=== PATIENT | female | born 1955 | race African-American/Black ===

== ENCOUNTER 2016-11-29 17:01 | Emergency (ER) | payer MEDICARE, OTHER ==
[2016-11-29 17:07] VITALS: BP 161/75
--- NOTE | 2016-11-29 17:14 | ER Document Report ---
ED Medical Screen (RME) - General Stated Complaint: KNEE PAIN Mode of Arrival: Ambulatory Information source: Patient Notes: Patient complains of left knee occasionally locking up. Patient denies any new injury. hx: Diabetes, hypertension, glaucoma I have greeted and performed a rapid initial assessment of this patient. A comprehensive ED assessment and evaluation of the patient, analysis of test results and completion of the medical decision making process will be conducted by additional ED providers. TRAVEL OUTSIDE OF THE [place] IN LAST 30 DAYS: No - Related Data Allergies/Adverse Reactions: No Known Allergies Allergy (Verified 09/16/16 10:53) Past Medical History - Past Medical History Cardiac Medical History: Reports: Hx Hypercholesterolemia, Hx Hypertension Pulmonary Medical History: Reports: Hx Asthma Endocrine Medical History: Reports: Hx Diabetes Mellitus Type 1, Hx Diabetes Mellitus Type 2 Past Surgical History: Reports: Hx Hysterectomy, Hx Orthopedic Surgery - L knee replacement - Immunizations Hx Diphtheria, Pertussis, Tetanus Vaccination: Yes Physical Exam - Vital signs Vitals: Temp Pulse Resp BP Pulse Ox 98.1 F 68 20 161/75 H 98 11/29/16 17:06 11/29/16 17:06 11/29/16 17:06 11/29/16 17:06 11/29/16 17:06 - Extremities General lower extremity: Tender - Left knee pain Course - Vital Signs Vital signs: Temp Pulse Resp BP Pulse Ox 98.1 F 68 20 161/75 H 98 11/29/16 17:06 11/29/16 17:06 11/29/16 17:06 11/29/16 17:06 11/29/16 17:06
--- NOTE | 2016-11-29 18:52 | ER Document Report ---
HPI - HPI Patient complains to provider of: left knee pain Onset: Other - 3 days Onset/Duration: Waxing and waning Quality of pain: Achy Pain Level: 5 Context: Patient complains of left knee locking up occasionally. Patient states that pain worsens when she's standing. Patient denies any new injury. Associated Symptoms: Other - Left knee. denies: Fever Exacerbated by: Standing, Movement, Walking Relieved by: Denies Similar symptoms previously: No Recently seen / treated by doctor: No - ROS ROS below otherwise negative: Yes Systems Reviewed and Negative: Yes All other systems reviewed and negative - CONSTITUTIONAL Constitutional: DENIES: Fever, Chills - EENT EENT: DENIES: Sore Throat, Ear Pain, Nasal Drainage-Clear, Nasal Drainage- Purulent, Congestion, Eye problems - NEURO Neurology: DENIES: Headache, Weakness, Dizzinesss / Vertigo - CARDIOVASCULAR Cardiovascular: DENIES: Chest pain - RESPIRATORY Respiratory: DENIES: Trouble Breathing, Coughing - GASTROINTESTINAL Gastrointestinal: DENIES: Abdominal Pain, Nausea, Patient vomiting, Diarrhea, Constipation, Black / Bloody Stools - URINARY Urinary: DENIES: Dysuria, Urgency, Frequency - REPRODUCTIVE Reproductive: DENIES: :, Postmenopausal, Abnormal bleeding / discharge - MUSCULOSKELETAL Musculoskeletal: REPORTS: Extremity pain - left knee. DENIES: Back Pain, Neck Pain, Swelling - DERM Skin Color: Normal Skin Problems: None - NURSING COMMENTS Comment: pt states she had tkr to the left knee in . states now the knee had got to where it will lock up on her. states she has appt next month to the orthopedic. states she recently had back surgery and was told that would also help her knee. Past Medical History - General Information source: Patient - Social History Smoking Status: Unknown if Ever Smoked Chew tobacco use (# tins/day): No Frequency of alcohol use: None Drug Abuse: None Occupation: none Lives with: Spouse/Significant other Family History: Reviewed & Not Pertinent Patient has suicidal ideation: No Patient has homicidal ideation: No - Past Medical History Cardiac Medical History: Reports: Hx Hypercholesterolemia, Hx Hypertension Pulmonary Medical History: Reports: Hx Asthma Endocrine Medical History: Reports: Hx Diabetes Mellitus Type 1, Hx Diabetes Mellitus Type 2 Renal/ Medical History: Denies: Hx Peritoneal Dialysis Past Surgical History: Reports: Hx Hysterectomy, Hx Orthopedic Surgery - L knee replacement - Immunizations Hx Diphtheria, Pertussis, Tetanus Vaccination: Yes Hx Pneumococcal Vaccination: 08/08/12 Vertical Provider Document - CONSTITUTIONAL Agree With Documented VS: Yes Exam Limitations: No Limitations General Appearance: WD/WN, No Apparent Distress - INFECTION CONTROL TRAVEL OUTSIDE OF THE [place] IN LAST 30 DAYS: No - HEENT HEENT: Atraumatic, Normocephalic - NECK Neck: Normal Inspection - RESPIRATORY Respiratory: Breath Sounds Normal, No Respiratory Distress O2 Sat by Pulse Oximetry: 98 - CARDIOVASCULAR Cardiovascular: Regular Rate, Regular Rhythm Pulses: Normal: Posterior tibial - MUSCULOSKELETAL/EXTREMETIES Musculoskeletal/Extremeties: MAEW, Tender - Mild tenderness to left knee joint medial compartment, no laxity with varus or valgus maneuvers, no effusion, scar overlying left knee from previous knee replacement surgery - NEURO Level of Consciousness: Awake, Alert, Appropriate Motor/Sensory: No Motor Deficit, No Sensory Deficit - DERM Integumentary: Warm, Dry, No Rash Course - Re-evaluation Re-evalutation: 11/29/16 18:53 Patient states that she has crutches at home. - Vital Signs Vital signs: Temp Pulse Resp BP Pulse Ox 98.1 F 68 20 161/75 H 98 11/29/16 17:06 11/29/16 17:06 11/29/16 17:06 11/29/16 17:06 11/29/16 17:06 - Diagnostic Test Radiology reviewed: Reports reviewed Discharge - Discharge Clinical Impression: hx arthritis Knee pain, left Qualifiers: Chronicity: unspecified Qualified Code(s): M25.562 - Pain in left knee Condition: Stable Disposition: HOME, SELF-CARE Instructions: Oral Narcotic Medication ([facility]), Arthritis ([facility]) Additional Instructions: Return immediately for any new or worsening symptoms Followup with your primary care provider, call tomorrow to make a followup appointment Follow-up with your orthopedic surgeon ([facility]) for recheck Prescriptions: Oxycodone HCl/Acetaminophen [Percocet 5-325 mg Tablet] 1 tab PO ASDIR PRN #15 tablet PRN Reason: Forms: Elevated Blood Pressure
== END 2016-11-29 18:56 | disposition home or self-care (01) ==
LOC: ER 17:01
DX: M25.562 Pain in left knee (principal); E78.00 Pure hypercholesterolemia, unspecified; I10 Essential (primary) hypertension; E11.9 Type 2 diabetes mellitus without complications; Z90.710 Acquired absence of both cervix and uterus; Z96.652 Presence of left artificial knee joint
CPT/HCPCS: 99283

== ENCOUNTER → 2016-12-25 | Outpatient (CLI) | payer MEDICARE ==
[2016-12-25 10:21] LABS: BLOOD UREA NITROGEN 13 mg/dL (7-20)
== END ==
LOC: OD 09:05
PROVIDERS: ATTEND Orthopaedic Surgery
DX: M54.32 Sciatica, left side (principal)
CPT/HCPCS: 36415; 82565; 84520

== ENCOUNTER → 2017-01-18 | Outpatient (CLI) | payer MEDICARE, OTHER | LOC: OD 11:34 | PROVIDERS: ATTEND Physician Assistant | DX: M25.562 Pain in left knee (principal) | CPT/HCPCS: 36415; 85652; 86140 ==

== ENCOUNTER 2018-12-21 19:06 | Emergency (ER) | payer MEDICARE ==
[2018-12-21 19:12] VITALS: BP 178/78
--- NOTE | 2018-12-21 19:18 | ER Document Report ---
HPI - HPI Time Seen by Provider: 12/21/18 19:16 Pain Level: 4 Notes: Patient is a 63-year-old female with no significant past medical history aside from diabetes and hypertension who presents to the emergency department complaining of left medial ankle pain status post injury prior to arrival. Patient states that she was walking through a store when she stepped awkwardly on a pipe. Patient states that she has had pain since then without any obvious swelling or deformity. She has not noticed any bruising. Patient states that she is able to ambulate and weight-bear, but does have a limp. No other concerns or complaints. Denies drug allergies. Denies any headache, fever, head injury, neck pain, URI, sore throat, chest pain, palpitations, syncope, cough, shortness of breath, wheeze, dyspnea, abdominal pain, nausea/vomiting/diarrhea, urinary retention, dysuria, hematuria, loss of control of bowel or bladder, numbness/tingling, muscle paralysis, or rash. - ROS Systems Reviewed and Negative: Yes All other systems reviewed and negative - REPRODUCTIVE Reproductive: DENIES: : Past Medical History - Social History Smoking Status: Unknown if Ever Smoked Family History: Reviewed & Not Pertinent - Past Medical History Cardiac Medical History: Reports: Hx Hypercholesterolemia, Hx Hypertension Pulmonary Medical History: Reports: Hx Asthma Endocrine Medical History: Reports: Hx Diabetes Mellitus Type 1, Hx Diabetes Mellitus Type 2 Renal/ Medical History: Denies: Hx Peritoneal Dialysis Past Surgical History: Reports: Hx Hysterectomy, Hx Orthopedic Surgery - L knee replacement - Immunizations Hx Diphtheria, Pertussis, Tetanus Vaccination: Yes Hx Pneumococcal Vaccination: 08/08/12 Vertical Provider Document - CONSTITUTIONAL Agree With Documented VS: Yes Notes: PHYSICAL EXAMINATION: GENERAL: Well-appearing, well-nourished and in no acute distress. LUNGS: Breath sounds clear to auscultation bilaterally and equal. No wheezes rales or rhonchi. HEART: Regular rate and rhythm without murmurs, rubs, gallops. Musculoskeletal: Lt foot/ankle: FROM to passive/active. Strength 5+/5. N/V intact distal. + tenderness to the medial malleolus. No bony tenderness of the foot. Achilles intact. Extremities: No cyanosis, clubbing, or edema b/l. Peripheral pulses 2+. Capillary refill less than 3 seconds. NEUROLOGICAL: Normal speech, limping gait. Normal sensory, motor exams PSYCH: Normal mood, normal affect. SKIN: Warm, Dry, normal turgor, no rashes or lesions noted. - INFECTION CONTROL TRAVEL OUTSIDE OF THE [place] IN LAST 30 DAYS: No Course - Re-evaluation Re-evalutation: 12/21/18 20:20 Patient is an afebrile, well-hydrated, 63-year-old female who presents to the ED with left ankle pain which I suspect to be a sprain versus strain. Vitals are acceptable without any significant tachycardia, tachypnea, or hypoxia. PE is otherwise unremarkable for any neurovascular compromise, obvious tendon/ligament rupture, obvious fracture/dislocation, septic joint. X-ray was unremarkable for any acute pathology. Ankle stirrup provided today. Patient declined any Tylenol or ice. Patient is nontoxic-appearing. Patient is able to ambulate and weight-bear although she is limping. No other labs or imaging warranted at this time based on H&P. Conservative measures otherwise for symptoms. Recheck with your PCM in 3-5 days. Consider consult orthopedics. Return to the ED with any worsening/concerning symptoms otherwise as reviewed in discharge. Patient is in agreement. - Vital Signs Vital signs: Temp Pulse Resp BP Pulse Ox 98.9 F 72 16 178/78 H 97 12/21/18 19:10 12/21/18 19:10 12/21/18 19:10 12/21/18 19:10 12/21/18 19:10 Discharge - Discharge Clinical Impression: Left ankle pain Qualifiers: Chronicity: acute Qualified Code(s): M25.572 - Pain in left ankle and joints of left foot Condition: Stable Disposition: HOME, SELF-CARE Additional Instructions: Rest, Ice, Compression, Elevation Use splint as directed Tylenol/ibuprofen as needed Light stretches daily Strength exercises as able Moist heat and massage may help F/u with your PCP in 3-5 days for a recheck Consider consult(s) with Orthopedics/physical therapy for ongoing/worsening symptoms Return to the ED with any worsening symptoms and/or development of fever, headache, chest pain, palpitations, syncope, shortness of breath, trouble breathing, abdominal pain, n/v/d, muscle weakness/paralysis, numbness/tingling, swelling, redness, or other worsening symptoms that are concerning to you. Forms: Elevated Blood Pressure Referrals: LEON SINGH PA [NO LOCAL MD] - Follow up as needed [facility] [Provider Group] - Follow up as needed
--- NOTE | 2018-12-21 20:19 | RADIOLOGY REPORT (SQ) ---
EXAM DESCRIPTION: XR ANKLE 3 OR MORE VIEWS COMPLETED DATE/TME: 12/21/2018 19:10 CLINICAL HISTORY: 63 years, Female, left ankle pain s/p injury COMPARISON: None. NUMBER OF VIEWS: Three TECHNIQUE: One frontal and oblique and lateral views of the left ankle joint. LIMITATIONS: None. FINDINGS: Ankle alignment is maintained. No fracture. Talar dome is intact. Calcaneus bone is without acute finding. Small plantar calcaneal spur. Small osteophyte at the postero-superior calcaneus in the region of the Achilles tendon insertion. Lower leg vascular calcifications are noted. IMPRESSION: No acute osseous finding of the left ankle joint. copyright 2010 [employer]- All Rights Reserved
== END 2018-12-21 20:32 | disposition home or self-care (01) ==
LOC: ER 19:06
DX: M25.572 Pain in left ankle and joints of left foot (principal); X50.0XXA Overexertion from strenuous movement or load, initial encounter; Y93.89 Activity, other specified; Y92.512 Supermarket, store or market as the place of occurrence of the external cause; E11.9 Type 2 diabetes mellitus without complications; I10 Essential (primary) hypertension; J45.909 Unspecified asthma, uncomplicated
CPT/HCPCS: 99283; 73610; L4350

== ENCOUNTER 2019-08-07 19:31 | Emergency (ER) | payer MEDICARE ==
[2019-08-07] MEDS ORDERED: CLONIDINE 0.3 MG/24 HR PATCH.TDWK TD ONE (20:55)
[2019-08-07 21:09] LABS: ABSOLUTE BASOPHILS # (AUTO) 0.1 10^3/uL (0.0-0.2); ABSOLUTE EOSINOPHILS # (AUTO) 0.4 10^3/uL (0.0-0.6); ABSOLUTE LYMPHOCYTES (AUTO) 0.9 10^3/uL (0.5-4.7); ABSOLUTE MONOCYTES (AUTO) 0.5 10^3/uL (0.1-1.4); ABSOLUTE NEUT (AUTO) 2.4 10^3/uL (1.7-8.2); BASOPHILS % (AUTO) 1.2 % (0-2); EOSINOPHILS % (AUTO) 8.6 % (0-6); HEMATOCRIT 37.2 % (36.0-47.0); HEMOGLOBIN 11.7 g/dL (12.0-15.5); LYMPHOCYTES % (AUTO) 21.8 % (13-45); MEAN CORPUSCULAR HEMOGLOBIN 23.9 pg (27.0-33.4); MEAN CORPUSCULAR HGB CONC 31.6 g/dL (32.0-36.0); MEAN CORPUSCULAR VOLUME 76 fl (80-97); MONOCYTES % (AUTO) 11.1 % (3-13); PLATELET COUNT 189 10^3/uL (150-450); RED BLOOD COUNT 4.92 10^6/uL (3.72-5.28); RED CELL DISTRIBUTION WIDTH 15.7 % (11.5-14.0); SEGMENTED NEUTROPHILS % (AUTO) 57.3 % (42-78); TOTAL CELLS COUNTED % (AUTO) 100 %; WHITE BLOOD COUNT 4.2 10^3/uL (4.0-10.5)
[2019-08-07 21:21] LABS: ALBUMIN 4.1 g/dL (3.5-5.0); ALKALINE PHOSPHATASE 72 U/L (38-126); ANION GAP 11 (5-19); ASPARTATE AMINO TRANSFERASE 19 U/L (14-36); BILIRUBIN,DIRECT 0.1 mg/dL (0.0-0.4); BILIRUBIN,TOTAL 0.3 mg/dL (0.2-1.3); BLOOD UREA NITROGEN 19 mg/dL (7-20); CALCIUM 10.2 mg/dL (8.4-10.2); CARBON DIOXIDE 28 mmol/L (22-30); CHLORIDE 103 mmol/L (98-107); GLUCOSE 117 mg/dL (75-110); POTASSIUM 3.6 mmol/L (3.6-5.0); TOTAL PROTEIN 6.6 g/dL (6.3-8.2)
[2019-08-07] MEDS ORDERED: CLONIDINE 0.3 MG/24 HR PATCH.TDWK ONE (21:28)
--- NOTE | 2019-08-07 21:44 | ER Document Report ---
ED Blood Pressure Problem - General Chief Complaint: High Blood Pressure Stated Complaint: BLOOD PRESSURE ISSUE Time Seen by Provider: 08/07/19 20:21 Primary Care Provider: EDWARD SETH PA-C [Primary Care Provider] - Follow up as needed Notes: Patient is a 64-year-old female presents to the emergency department for an elevation in her blood pressure. Patient states she typically follows up at [facility]. States in the last month her primary care provider has been "dealing with my high blood pressure." Patient voices her blood pressure is typically 150/90. States she has been taking metoprolol, losartan, hydralazine as prescribed. States she typically uses clonidine 0.3 mg transdermal patch onc e a week. States she did take it off this morning and forgot to put a repeat patch on. States when she got home she took her home blood pressure and it was 224/107. States she presents to her pharmacy to see if the blood pressure was the same at the pharmacy as it was at home. States the pharmacist told her she should present to the emergency room. Patient is denying any chest pain, shortness of breath, dizziness, headache, weakness, shortness of breath. Patient voices her reluctance to coming to the emergency department because "I feel fine." TRAVEL OUTSIDE OF THE [place] IN LAST 30 DAYS: No - Related Data Allergies/Adverse Reactions: No Known Allergies Allergy (Verified 12/21/18 19:06) Past Medical History - General Information source: Patient - Social History Smoking Status: Never Smoker Frequency of alcohol use: None Drug Abuse: None Family History: Reviewed & Not Pertinent Patient has suicidal ideation: No Patient has homicidal ideation: No - Past Medical History Cardiac Medical History: Reports: Hx Hypercholesterolemia, Hx Hypertension Pulmonary Medical History: Reports: Hx Asthma Endocrine Medical History: Reports: Hx Diabetes Mellitus Type 1, Hx Diabetes Mellitus Type 2 Renal/ Medical History: Denies: Hx Peritoneal Dialysis Past Surgical History: Reports: Hx Hysterectomy, Hx Orthopedic Surgery - L knee replacement - Immunizations Hx Diphtheria, Pertussis, Tetanus Vaccination: Yes Hx Pneumococcal Vaccination: 08/08/12 Review of Systems - Review of Systems Constitutional: denies: Fever EENT: No symptoms reported Cardiovascular: No symptoms reported Respiratory: No symptoms reported Gastrointestinal: No symptoms reported Genitourinary: No symptoms reported Female Genitourinary: No symptoms reported Musculoskeletal: No symptoms reported Skin: No symptoms reported Hematologic/Lymphatic: No symptoms reported Neurological/Psychological: No symptoms reported Physical Exam - Vital signs Vitals: Temp Pulse Resp BP Pulse Ox 98.2 F 64 14 231/83 H 96 08/07/19 19:40 08/07/19 19:40 08/07/19 19:40 08/07/19 19:40 08/07/19 19:40 - Notes Notes: GENERAL: Alert, interacts well. No acute distress. HEAD: Normocephalic, atraumatic. EYES: Pupils equal, round, and reactive to light. Extraocular movements intact. ENT: Oral mucosa moist, tongue midline. NECK: Full range of motion. Supple. Trachea midline. LUNGS: Clear to auscultation bilaterally, no wheezes, rales, or rhonchi. No respiratory distress. HEART: Regular rate and rhythm. No murmur ABDOMEN: Soft, non-tender. Non-distended. Bowel sounds present in all 4 quadrants. EXTREMITIES: Moves all 4 extremities spontaneously. No edema, normal radial and dorsalis pedis pulses bilaterally. No cyanosis. 5 out of 5 strength noted all 4 extremities. BACK: no cervical, thoracic, lumbar midline tenderness. No saddle anesthesia, normal distal neurovascular exam. NEUROLOGICAL: Alert and oriented x3. Normal speech. cranial nerves II through XII grossly intact PSYCH: Normal affect, normal mood. SKIN: Warm, dry, normal turgor. No rashes or lesions noted. Course - Re-evaluation Re-evalutation: 08/07/19 21:41 Laboratory 08/07/19 08/07/19 20:53 20:53 WBC 4.2 RBC 4.92 Hgb 11.7 L Hct 37.2 MCV 76 L MCH 23.9 L MCHC 31.6 L RDW 15.7 H Plt Count 189 Lymph % (Auto) 21.8 [place] % (Auto) 11.1 Eos % (Auto) 8.6 H Baso % (Auto) 1.2 Absolute Neuts (auto) 2.4 Absolute Lymphs (auto) 0.9 Absolute Monos (auto) 0.5 Absolute Eos (auto) 0.4 Absolute Basos (auto) 0.1 Seg Neutrophils % 57.3 Sodium 141.9 Potassium 3.6 Chloride 103 Carbon Dioxide 28 Anion Gap 11 BUN 19 Creatinine 0.96 Est GFR ( Amer) > 60 Est GFR (MDRD) Non-Af 58 L Glucose 117 H Calcium 10.2 Total Bilirubin 0.3 Direct Bilirubin 0.1 Neonat Total Bilirubin Not Reportable Neonat Direct Bilirubin Not Reportable Neonat Indirect Bili Not Reportable AST 19 ALT 16 Alkaline Phosphatase 72 Total Protein 6.6 Albumin 4.1 I have discussed this case with my attending Dr. Varghese who is suggesting giving the pt. her dose of Clonidine and having her f/u with her PCP. Patient voices she does have an appointment with her primary care provider on the of this month. I have explained her the importance of following up tomorrow. Discussed making sure she takes her medications as prescribed. Patient continues with asymptomatic hypertension. At this time will discharge with return precautions and follow-up recommendations. Verbal discharge instructions given a the bedside and opportunity for questions given. Medication warnings reviewed. Patient is in agreement with this plan and has verbalized understanding of return precautions and the need for primary care follow-up in the next 12-24 hours. This medical record was dictated with voice recognizing software. There may be grammatical, syntax errors that are unintended. - Vital Signs Vital signs: Temp Pulse Resp BP Pulse Ox 98.2 F 64 22 H 205/105 H 98 08/07/19 19:40 08/07/19 19:40 08/07/19 20:50 08/07/19 20:58 08/07/19 20:50 - Laboratory Result Diagrams: 08/07/19 20:53 08/07/19 20:53 Laboratory results interpreted by me: 08/07/19 08/07/19 20:53 20:53 Hgb 11.7 L MCV 76 L MCH 23.9 L MCHC 31.6 L RDW 15.7 H Eos % (Auto) 8.6 H Est GFR (MDRD) Non-Af 58 L Glucose 117 H Discharge - Discharge Clinical Impression: Hypertension Qualifiers: Hypertension type: unspecified Qualified Code(s): I10 - Essential (primary) hypertension Condition: Stable Disposition: HOME, SELF-CARE Instructions: High Blood Pressure ([facility]), Clonidine ([facility]) ([facility]) Additional Instructions: As we discussed you have been seen and treated in the emergency department for elevation of your blood pressure. Please make sure you are taking your medications as prescribed. Please call your primary care provider tomorrow to make an appointment. Please return to the emergency room for any concerns. Referrals: EDWARD SETH PA-C [Primary Care Provider] - Follow up as needed
[2019-08-07 22:16] VITALS: BP 200/82
--- NOTE | 2019-08-08 17:59 | EKG REPORT ---
SEVERITY:- BORDERLINE ECG - SINUS RHYTHM BORDERLINE T WAVE ABNORMALITIES BORDERLINE PROLONGED QT INTERVAL : Confirmed by: Tanya Calderon 08-Aug-2019 17:59:33
== END 2019-08-07 22:15 | disposition home or self-care (01) ==
LOC: ER 19:31
DX: I10 Essential (primary) hypertension (principal); E78.00 Pure hypercholesterolemia, unspecified; E11.9 Type 2 diabetes mellitus without complications; Z90.710 Acquired absence of both cervix and uterus; Z96.652 Presence of left artificial knee joint
CPT/HCPCS: 93005; 36415; 85025; 80053; 93010; J3490; 99283

== ENCOUNTER 2019-09-06 14:00 | Emergency (ER) | payer MEDICARE ==
--- NOTE | 2019-09-06 14:32 | ER Document Report ---
ED Medical Screen (RME) - General Chief Complaint: Allergic Reaction Stated Complaint: POSSIBLE ALLERGIC REACTION Time Seen by Provider: 09/06/19 14:18 Primary Care Provider: EDWARD SETH PA-C [Primary Care Provider] - Follow up as needed Mode of Arrival: Ambulatory Information source: Patient Notes: This 64-year-old female presents emergency department with complaints of slurred speech confusion that started this morning after she took Xanax. Reports her coworker said that she was slurring her speech. She started taking Xanax yesterday second dose was this morning at 0800. Reports she was placed on Xanax for her high blood pressure and stress. Reports feeling lightheaded when she walks, with activity. Some slurred speech noted at times. No obvious neuro deficits although patient tends to talk out of the right side of her mouth not sure this is normal for patient. No tongue deviation. Nasolabial fold on left slightly flattened. Good egg crater. I have greeted and performed a rapid initial assessment of this patient. A comprehensive ED assessment and evaluation of the patient, analysis of test results and completion of the medical decision making process will be conducted by additional ED providers. Dictation of this chart was performed using voice recognition software; therefore, there may be some unintended grammatical errors. TRAVEL OUTSIDE OF THE [place] IN LAST 30 DAYS: No - Related Data Allergies/Adverse Reactions: No Known Allergies Allergy (Verified 09/06/19 14:19) Past Medical History - Past Medical History Cardiac Medical History: Reports: Hx Hypercholesterolemia, Hx Hypertension Pulmonary Medical History: Reports: Hx Asthma Endocrine Medical History: Reports: Hx Diabetes Mellitus Type 1, Hx Diabetes Mellitus Type 2 Renal/ Medical History: Denies: Hx Peritoneal Dialysis Past Surgical History: Reports: Hx Hysterectomy, Hx Orthopedic Surgery - L knee replacement - Immunizations Hx Diphtheria, Pertussis, Tetanus Vaccination: Yes Physical Exam - Vital signs Vitals: Temp Pulse Resp BP Pulse Ox 97.6 F 62 20 153/68 H 100 09/06/19 14:06 09/06/19 14:06 09/06/19 14:06 09/06/19 14:06 09/06/19 14:06 Course - Vital Signs Vital signs: Temp Pulse Resp BP Pulse Ox 97.6 F 62 20 153/68 H 100 09/06/19 14:06 09/06/19 14:06 09/06/19 14:06 09/06/19 14:06 09/06/19 14:06 Doctor's Discharge - Discharge Referrals: EDWARD SETH PA-C [Primary Care Provider] - Follow up as needed
[2019-09-06 14:53] LABS: ABSOLUTE BASOPHILS # (AUTO) 0.1 10^3/uL (0.0-0.2); ABSOLUTE EOSINOPHILS # (AUTO) 0.3 10^3/uL (0.0-0.6); ABSOLUTE LYMPHOCYTES (AUTO) 0.9 10^3/uL (0.5-4.7); ABSOLUTE MONOCYTES (AUTO) 0.4 10^3/uL (0.1-1.4); ABSOLUTE NEUT (AUTO) 2.4 10^3/uL (1.7-8.2); BASOPHILS % (AUTO) 1.3 % (0-2); EOSINOPHILS % (AUTO) 7.5 % (0-6); HEMATOCRIT 38.2 % (36.0-47.0); HEMOGLOBIN 12.2 g/dL (12.0-15.5); MEAN CORPUSCULAR HEMOGLOBIN 24.2 pg (27.0-33.4); MEAN CORPUSCULAR HGB CONC 32.1 g/dL (32.0-36.0); MEAN CORPUSCULAR VOLUME 76 fl (80-97); MONOCYTES % (AUTO) 10.2 % (3-13); PLATELET COUNT 207 10^3/uL (150-450); RED BLOOD COUNT 5.06 10^6/uL (3.72-5.28); RED CELL DISTRIBUTION WIDTH 15.5 % (11.5-14.0); TOTAL CELLS COUNTED % (AUTO) 100 %
[2019-09-06 14:57] LABS: INTERNATIONAL RATION (INR) 0.87
[2019-09-06 14:58] LABS: PARTIAL THROMBOPLASTIN TIME 28.1 SEC (23.5-35.8)
[2019-09-06 14:59] LABS: PROTHROMBIN TIME 11.8 SEC (11.4-15.4)
--- NOTE | 2019-09-06 15:00 | RADIOLOGY REPORT (SQ) ---
EXAM DESCRIPTION: CT HEAD WITHOUT COMPLETED DATE/TIME: 09/06/2019 2:48 pm REASON FOR STUDY: slurred speech, confusion COMPARISON: None. TECHNIQUE: Axial images acquired through the brain without intravenous contrast. Images reviewed wi th bone, brain and subdural windows. Additional sagittal and coronal reconstructions were generated. Images stored on PACS. All CT scanners at this facility use dose modulation, iterative reconstruction, and/or weight based d osing when appropriate to reduce radiation dose to as low as reasonably achievable (ALARA). [facility]: Dose Right [facility]: CareDose [facility]: Dose Right [facility]: Teradose 4D [facility]: [employer] RADIATION DOSE: CT Rad equipment meets quality standard of care and radiation dose reduction techniq ues were employed. CTDIvol: 53.2 mGy. DLP: 1044 mGy-cm. mGy. LIMITATIONS: None. FINDINGS: VENTRICLES: Prominent. CEREBRUM: No masses. No hemorrhage. No midline shift. Areas of low density in the white matter mos t likely due to chronic micro-vascular ischemic change. No evidence for acute infarction. CEREBELLUM: No masses. No hemorrhage. No alteration of density. No evidence for acute infarction. EXTRAAXIAL SPACES: Mild age-related involutional change. No fluid collections. No masses. ORBITS AND GLOBE: No intra- or extraconal masses. Normal contour of globe without masses. CALVARIUM: No fracture. PARANASAL SINUSES: No fluid or mucosal thickening. SOFT TISSUES: No mass or hematoma. OTHER: No other significant finding. IMPRESSION: MILD CHRONIC CHANGES OF ATROPHY AND MICROVASCULAR ISCHEMIA. NO ACUTE PROCESS. EVIDENCE OF ACUTE STROKE: NO. TECHNICAL DOCUMENTATION: JOB ID: [id number] Quality ID # [id number]: Final reports with documentation of one or more dose reduction techniques (e.g., Au tomated exposure control, adjustment of the mA and/or kV according to patient size, use of iterative reconstruction technique) 2010 [employer]- All Rights Reserved Reading location - IP/workstation name: [email or web address]
--- NOTE | 2019-09-06 15:02 | RADIOLOGY REPORT (SQ) ---
EXAM DESCRIPTION: CHEST SINGLE VIEW COMPLETED DATE/TIME: 09/06/2019 2:47 pm REASON FOR STUDY: slurred speech, confusion COMPARISON: 08/19/2012 EXAM PARAMETERS: NUMBER OF VIEWS: One view. TECHNIQUE: Single frontal radiographic view of the chest acquired. RADIATION DOSE: NA LIMITATIONS: None. FINDINGS: LUNGS AND PLEURA: No opacities, masses or pneumothorax. No pleural effusion. MEDIASTINUM AND HILAR STRUCTURES: No masses. Contour normal. HEART AND VASCULAR STRUCTURES: Heart normal in size. Normal vasculature. BONES: No acute findings. HARDWARE: None in the chest. OTHER: No other significant finding. IMPRESSION: NO ACUTE RADIOGRAPHIC FINDING IN THE CHEST. TECHNICAL DOCUMENTATION: JOB ID: [id number] [employer]- All Rights Reserved Reading location - IP/workstation name: [email or web address]
[2019-09-06 15:15] LABS: ALBUMIN 4.5 g/dL (3.5-5.0); ALKALINE PHOSPHATASE 78 U/L (38-126); ANION GAP 13 (5-19); ASPARTATE AMINO TRANSFERASE 18 U/L (14-36); BILIRUBIN,DIRECT 0.1 mg/dL (0.0-0.4); BILIRUBIN,TOTAL 0.5 mg/dL (0.2-1.3); BLOOD UREA NITROGEN 23 mg/dL (7-20); CALCIUM 10.3 mg/dL (8.4-10.2); CARBON DIOXIDE 28 mmol/L (22-30); CHLORIDE 101 mmol/L (98-107); GLUCOSE 179 mg/dL (75-110); POTASSIUM 3.6 mmol/L (3.6-5.0); TOTAL PROTEIN 7.3 g/dL (6.3-8.2)
[2019-09-06 18:05] VITALS: BP 187/97
--- NOTE | 2019-09-06 18:10 | ER Document Report ---
ED Dizziness/Weakness - General Chief Complaint: Dizziness Stated Complaint: POSSIBLE ALLERGIC REACTION Time Seen by Provider: 09/06/19 14:18 Primary Care Provider: EDWARD SETH PA-C [Primary Care Provider] - Follow up as needed Mode of Arrival: Ambulatory Notes: This 64-year-old female presents emergency department with complaints of slurred speech confusion that started this morning after she took Xanax. Reports her coworker said that she was slurring her speech. She started taking Xanax yesterday second dose was this morning at 0800. Reports she was placed on Xanax for her high blood pressure and stress. Reports feeling lightheaded when she walks, with activity. Some slurred speech noted at times. No obvious neuro deficits although patient tends to talk out of the right side of her mouth not sure this is normal for patient. No tongue deviation. Nasolabial fold on left slightly flattened. 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 TRAVEL OUTSIDE OF THE [place] IN LAST 30 DAYS: No - Related Data Allergies/Adverse Reactions: No Known Allergies Allergy (Verified 09/06/19 14:19) Home Medications: [facility] Past Medical History - General Information source: Patient - Social History Smoking Status: Never Smoker Family History: Reviewed & Not Pertinent Patient has suicidal ideation: No Patient has homicidal ideation: No - Past Medical History Cardiac Medical History: Reports: Hx Hypercholesterolemia, Hx Hypertension Pulmonary Medical History: Reports: Hx Asthma Endocrine Medical History: Reports: Hx Diabetes Mellitus Type 1, Hx Diabetes Mellitus Type 2 Renal/ Medical History: Denies: Hx Peritoneal Dialysis Past Surgical History: Reports: Hx Hysterectomy, Hx Orthopedic Surgery - L knee replacement - Immunizations Hx Diphtheria, Pertussis, Tetanus Vaccination: Yes Hx Pneumococcal Vaccination: 08/08/12 Physical Exam - Vital signs Vitals: Temp Pulse Resp BP Pulse Ox 97.6 F 62 20 153/68 H 100 09/06/19 14:06 09/06/19 14:06 09/06/19 14:06 09/06/19 14:06 09/06/19 14:06 Course - Vital Signs Vital signs: Temp Pulse Resp BP Pulse Ox 97.6 F 62 17 187/97 H 96 09/06/19 14:06 09/06/19 14:06 09/06/19 18:01 09/06/19 18:01 09/06/19 18:01 - Laboratory Result Diagrams: 09/06/19 14:36 09/06/19 14:36 Laboratory results interpreted by me: 09/06/19 09/06/19 14:36 14:36 MCV 76 L MCH 24.2 L RDW 15.5 H Eos % (Auto) 7.5 H BUN 23 H Est GFR (MDRD) Non-Af 54 L Glucose 179 H Calcium 10.3 H Discharge - Discharge Clinical Impression: Side effect of medication, Dizziness Condition: Stable Disposition: HOME, SELF-CARE Additional Instructions: Please stop taking the alprazolam that was prescribed to you. I feel this is the most likely culprit of your dizziness. Please continue to take all regularly scheduled medications. Please call and make an appointment with your primary care provider to discuss your elevated blood pressure, and adjustment needs to be to your blood pressure medications. Please return to the emergency department with any new or worsening symptoms we are happy to reevaluate you at any time. Referrals: EDWARD SETH PA-C [Primary Care Provider] - Follow up as needed
--- NOTE | 2019-09-06 23:29 | EKG REPORT ---
SEVERITY:- ABNORMAL ECG - SINUS RHYTHM FIRST DEGREE AV BLOCK BORDERLINE T WAVE ABNORMALITIES : Confirmed by: Shaunna Monroe MD 06-Sep-2019 23:29:21
== END 2019-09-06 18:25 | disposition home or self-care (01) ==
LOC: ER 14:00
DX: T42.4X5A Adverse effect of benzodiazepines, initial encounter (principal); Y92.9 Unspecified place or not applicable; R42 Dizziness and giddiness; R47.81 Slurred speech; R41.0 Disorientation, unspecified; Z79.899 Other long term (current) drug therapy; I10 Essential (primary) hypertension
CPT/HCPCS: 36415; 70450; 71045; 80053; 84484; 85025; 85610; 85730; 93005; 93010

== ENCOUNTER 2020-03-19 08:59 | Emergency (ER) | payer MEDICARE ==
[2020-03-19 09:05] VITALS: BP 198/71
[2020-03-19] MEDS ORDERED: KETOROLAC TROMETHAMINE INJ/PF 30 MG/1 ML SDV IM ONE (09:42)
[2020-03-19] MEDS ORDERED: ACETAMINOPHEN 325 MG TABLET PO ONE (09:43)
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
== END 2020-03-19 09:49 | disposition home or self-care (01) ==
LOC: ER 08:59
DX: M54.32 Sciatica, left side (principal); Z90.710 Acquired absence of both cervix and uterus; Z96.652 Presence of left artificial knee joint
CPT/HCPCS: 99283; 96372; A9270; J1885

== ENCOUNTER 2020-07-11 12:58 | Emergency (ER) | payer MEDICARE, OTHER ==
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
[2020-07-11 15:06] VITALS: BP 187/70
== END 2020-07-11 15:06 | disposition home or self-care (01) ==
LOC: ER 12:58
DX: M25.562 Pain in left knee (principal); M54.12 Radiculopathy, cervical region; M50.322 Other cervical disc degeneration at C5-C6 level; V49.40XA Driver injured in collision with unspecified motor vehicles in traffic accident, initial encounter; E78.00 Pure hypercholesterolemia, unspecified; I10 Essential (primary) hypertension; E11.9 Type 2 diabetes mellitus without complications; Z96.652 Presence of left artificial knee joint
CPT/HCPCS: 72125; 99284